=== PATIENT | male | born 1980 | race African-American/Black ===

== ENCOUNTER 2018-03-23 07:41 | Emergency (ER) | payer MEDICAID ==
[~2018-03-23] VITALS: Ht 170.2 cm; Wt 62.0 kg
[2018-03-23] MEDS ORDERED: KETOROLAC 60MG/2ML VIAL IM STA (08:26)
[2018-03-23] MEDS ORDERED: LORAZEPAM 1MG TABLET PO ONE (08:30)
[2018-03-23 08:42] LABS: HEMATOCRIT. 40.1 % (42.0-52.0); HEMOGLOBIN. 13.4 g/dL (14.0-18.0); MEAN CORPUSCULAR HEMOGLOBIN 30.5 pg (28.0-32.0); MEAN CORPUSCULAR VOLUME 91.4 fL (80.0-94.0); MEAN PLATELET VOLUME 9.3 fl (7.4-10.4); PLATELET 150 x1000/uL (130-400); RED BLOOD CELL COUNT 4.39 mill/uL (4.7-6.1); RED CELL DISTRIBUTION WIDTH 13.2 % (11.6-14.6)
[2018-03-23 08:48] LABS: CHLORIDE 101 mEq/L (98-107)
[2018-03-23 08:51] LABS: ETHANOL BLOOD < 10 mg/dL; INR 1.1; PARTIAL THROMBOPLASTIN TIME 27.3 sec (23.4-31.0); PROTHROMBIN TIME 11.2 sec (9.4-11.6)
[2018-03-23 09:11] LABS: PLATELET ESTIMATE NORMAL
[2018-03-23 15:00] VITALS: BP 128/66
== END 2018-03-23 15:10 | disposition home or self-care (01) ==
LOC: ER 07:41
DX: F41.9 Anxiety disorder, unspecified (principal); R07.89 Other chest pain; F32.9 Major depressive disorder, single episode, unspecified; F12.10 Cannabis abuse, uncomplicated; I10 Essential (primary) hypertension; Z87.891 Personal history of nicotine dependence; Z91.010 Allergy to peanuts
CPT/HCPCS: 36415; 71045; 80053; 80307; 80329; 83880; 84443; 84484; 85025; 85610; 85730; 93005; 96372; 99285; G0482; J1885